=== PATIENT | female | born 1985 | race Caucasian/White ===

== ENCOUNTER 2018-11-30 15:48 | Outpatient (CLI) | payer BC ==
[~2018-11-30 15:48] MED LIST: DCS100C PO; HYDR-3720 PO; Ibuprofen PO; PREN-93 PO
--- NOTE | 2018-11-30 15:57 | NUR ---
JYOTI BARRETT presented to unit via ambulation from ED with c/o FELL AT WORK. Pt weighed, gowned, voided, and to bed. EFHM and TOCO applied, VS taken. Pt. oriented to bed controls, call light, TV, heat, and A/C controls.
[2018-11-30 16:00] VITALS: BP 110/65
--- NOTE | 2018-11-30 16:02 | NUR ---
pt reports falling @ work today, around 1050 this a.m. walking out of bathroom, slipped on water, feel and hit Rt. hip. denies hitting abd. reports +FM. denies leaking fluid or vaginal bleeding. called 's office. requesting pt to be seen. had pre-op appointment this afternoon prior to arrival on unit.
--- NOTE | 2018-11-30 16:40 | NUR ---
ultrasound here for BPP.
--- NOTE | 2018-11-30 17:08 | Diagnostic Imaging Report ---
INDICATION: Fall, abdominal pain with contractions. History of polyhydramnios. TECHNIQUE: Multiple real-time grayscale images were obtained over the gravid uterus. COMPARISON: None. FINDINGS: Biophysical Profile Score: Movement: 2 Breathin Tone: 2 Fluid: 2 Total: /8 Heart Rate: 136 BPM. Presentation is cephalic. Placenta is anterior. BRIGITTE is 18.3 cm. The single largest vertical pocket is 6.5 cm. IMPRESSION: 1. Normal Biophysical Profile Score. 2. BRIGITTE is 18.3, which is within normal limits. Dictated by: Dictated on workstation # [id number]
--- NOTE | 2018-11-30 17:10 | NUR ---
here to see pt.
--- NOTE | 2018-11-30 17:32 | NUR ---
dismissal instructions given, states understanding. reviewed sx's and sx's to RTC. signature page singed, placed on chart.
--- NOTE | 2018-11-30 17:35 | NUR ---
pt ambulated to private vehicle with no sx's of distress noted.
--- NOTE | 2018-12-01 08:51 | Physician Query-Final Dx ---
Clinic Account Progress/Dx Physician Query: Please give diagnosis Please remember to include weeks gestation Date of Service Nov 30, 2018 at 15:48 GABE HERNANDEZ Dec 01, 2018 08:51
[2018-12-01] MEDS ORDERED: PREN1TAB79 PO (12:00)
[2018-12-06] MEDS ORDERED: DOCU100C37 PO (11:51)
[2018-12-06] MEDS ORDERED: OXYC1TAB12 PO (11:51)
[2018-12-06] MEDS ORDERED: IBUP-1780 PO (11:51)
== END 2018-11-30 17:35 | disposition home or self-care (01) ==
LOC: LDRP 15:48 → WSo 15:48
PROVIDERS: ATTEND Obstetrics & Gynecology
DX: O33.2 Maternal care for disproportion due to inlet contraction of pelvis (principal); O99.89 Other specified diseases and conditions complicating pregnancy, childbirth and the puerperium; R10.9 Unspecified abdominal pain; Z87.59 Personal history of other complications of pregnancy, childbirth and the puerperium; W19.XXXA Unspecified fall, initial encounter
CPT/HCPCS: 59025; 76805; 76819

== ENCOUNTER 2018-12-01 09:00 | Outpatient (CLI) | payer BC ==
[~2018-12-01] VITALS: Ht 160 cm; Wt 71.2 kg
[2018-12-01] MEDS ORDERED: PREN1TAB79 PO (12:00)
== END 2018-12-01 12:20 | disposition home or self-care (01) ==
LOC: PREOP 09:00
PROVIDERS: ATTEND Obstetrics & Gynecology
DX: Z01.818 Encounter for other preprocedural examination (principal)

== ENCOUNTER 2018-12-06 09:40 | Inpatient (IN) | payer BC ==
[~2018-12-06] VITALS: Ht 161.3 cm; Wt 70.9 kg
[2018-12-06] VITALS (8 sets, daily range): BP systolic 100–118; BP diastolic 57–67
[~2018-12-06 09:40] MED LIST changes: +PREN1TAB79 PO
--- NOTE | 2018-12-06 09:43 | NUR ---
JYOTI BARRETT presented to unit via AMBULATORY from HOME, accompanied by S/O FOR SCHEDULED REPEAT . JYOTI BARRETT weighed, gowned, voided, and to bed. EFHM and TOCO applied, VS taken. JYOTI BARRETT oriented to bed controls, call light, TV, heat, and A/C controls.
[2018-12-06] MEDS ORDERED: LACTATED RINGERS 1,000 ML IV PRN (10:36)
[2018-12-06 10:43] LABS: BASOPHILS % (AUTO) 0 % (0-10); EOSINOPHILS # (AUTO) 0.3 10^3/uL (0.0-0.3); EOSINOPHILS % (AUTO) 3 % (0-10); HEMATOCRIT 35 % (35-52); HEMOGLOBIN 11.8 G/DL (11.5-16.0); LYMPHOCYTES # (AUTO) 1.4 X 10^3 (1.0-4.0); LYMPHOCYTES % (AUTO) 13 % (12-44); MEAN CORPUSCULAR HEMOGLOBIN 29 PG (25-34); MEAN CORPUSCULAR HGB CONC 34 G/DL (32-36); MEAN CORPUSCULAR VOLUME 86 FL (80-99); MEAN PLATELET VOLUME 10.4 FL (7.4-10.4); MONOCYTES # (AUTO) 0.8 X 10^3 (0.0-1.0); MONOCYTES % (AUTO) 8 % (0-12); NEUTROPHILS # (AUTO) 7.9 X 10^3 (1.8-7.8); NEUTROPHILS % (AUTO) 76 % (42-75); PLATELET COUNT 198 10^3/uL (130-400); RED CELL DISTRIBUTION WIDTH 13.2 % (10.0-14.5); WHITE BLOOD COUNT 10.4 10^3/uL (4.3-11.0)
[2018-12-06] MEDS ORDERED: CATHETER FLUSH 10 ML SYR IV PRN (10:45)
[2018-12-06] MEDS ORDERED: FAMOTIDINE 20MG/2ML IV (PEPCID) IV ONE (10:45)
[2018-12-06] MEDS ORDERED: ceFAZolin 2 GM/50 ML NS 50 ML IV ONE (10:45)
[2018-12-06] MEDS ORDERED: CITRIC ACID/SOB CIT (BICITRA) 30 ML UDC PO ONE (10:45)
[2018-12-06] MEDS ORDERED: METOCLOPRAMIDE INJ 10 MG/2 ML (REGLAN) IV ONE (10:45)
[2018-12-06] MEDS ORDERED: LACTATED RINGERS 1,000 ML IV ONE (10:45)
[2018-12-06] MEDS ORDERED: metroNIDAZOLE 500MG/100ML IVPB 100 ML IV ONE (10:45)
[2018-12-06] MEDS ORDERED: fentaNYL INJECTION 100 MCG/2 ML AMP ONE (11:10)
[2018-12-06] MEDS ORDERED: D5 LR IV SOLUTION 1,000 ML IV SCH (11:44)
[2018-12-06] MEDS ORDERED: OXYTOCIN/NORMAL SALINE 500 ML IV SCH (11:44)
[2018-12-06] MEDS ORDERED: ONDANSETRON 4 MG/2 ML (SDV) Z0FRAN IVP PRN (11:45)
[2018-12-06] MEDS ORDERED: MEASLES,MUMPS,RUBELLA 1 EA INJ SC ONE (11:45)
[2018-12-06] MEDS ORDERED: oxyCODONE/APAP 10/325MG (PERCOCET 10) TABLET PO PRN (11:45)
[2018-12-06] MEDS ORDERED: TETANUS,DIPTH,PERTUSS P/F (BOOSTRIX) 0.5 ML VIAL IM ONE (11:45)
[2018-12-06] MEDS ORDERED: OXYTOCIN/NORMAL SALINE 1,000 ML IV ONE (11:48)
--- NOTE | 2018-12-06 11:49 | History & Physical ---
History and Physical Date Seen by Provider: Dec 06, 2018 Time Seen by Provider: 11:47 This patient is a 33-year-old white female with an EDC of [phone] putting her now at 38 weeks gestation. She presents now for repeat delivery. She has had 3 previous cesareans. She had her is complicated by polyhydramnios as well as her 3 previous pregnancies. She's had no other issues today. She did have a GBS culture done at 35 weeks gestation that was positive. She denies rupture membranes or bleeding. She denies pain or contractions. She does feel baby moving. Allergies are none Medications are vitamins and Prilosec Medical social and surgical histories are per the antepartum record HEENT exam is normal Neck is supple no lymphadenopathy no thyromegaly Abdomen is gravid soft nontender nondistended Extremities show no clubbing or cyanosis. There is no Homans sign. Pelvic exam is deferred Laboratory Tests 12/06/18 10:12 Assessment and plan term at 38 weeks gestation with polyhydramnios in a patient with 3 previous C-sections. She presents now for repeat delivery. Surgical risk complication recovering follow-up have all been fully discussed. Patient accepts those risks and is ready to proceed with delivery. Allergies and Home Medications Allergies Coded Allergies: No Known Drug Allergies (Verified Allergy, Unknown, 04/23/08) Home Medications Vit W-Ca,Fe,FA(<1 mg) 1 Each Tablet, 1 EACH PO DAILY, (Reported) Patient Home Medication List Home Medication List Reviewed: Yes Clinical Quality Measures DVT/VTE Risk/Contraindication: Risk Factor Score Per Nursin RFS Level Per Nursing on Admit: 2=Moderate AYANNA GOOD MD Dec 06, 2018 11:49
[2018-12-06] MEDS ORDERED: OXYC1TAB12 PO (11:51)
[2018-12-06] MEDS ORDERED: DOCU100C37 PO (11:51)
[2018-12-06] MEDS ORDERED: IBUP-1780 PO (11:51)
--- NOTE | 2018-12-06 11:52 | Discharge Instructions ---
Discharge Instructions Reconcile Patient Problems Problems Reviewed?: Yes Discharge Medications New, Converted or Re-Newed RX: RX on Chart Patient Instructions Patient Instructions: As directed Return to The Hospital For: As directed Activity & Diet Discharge Diet: No Restrictions Activity as Tolerated: No Orders-Post D/C & Referrals Follow Up Appt: RTC 1 week for incision check. Call to make follow up appt. for patient in 4 weeks. Wound Care: Remove mary, apply benzoin and steri strips. Activity Per routine post instructions. Please call in RX to patient pharmacy. Diet as tolerated Patient may shower or tub bathe as desired. Continue home meds AYANNA GOOD MD Dec 06, 2018 11:52
[2018-12-06] MEDS ORDERED: KETOROLAC 30 MG/ML VIAL ONE (12:09)
[2018-12-06] MEDS ORDERED: PHENYLEPHRINE 100 MCG/ML 10 ML (ANESTHESIA) SYR ONE (12:20)
[2018-12-06] MEDS ORDERED: ONDANSETRON 4 MG/2 ML (SDV) Z0FRAN ONE (12:31)
[2018-12-06] MEDS: KETOROLAC 30 MG/ML VIAL IVP PRN ×2 (13:07→20:05)
[2018-12-06] MEDS ORDERED: ONDANSETRON 4 MG/2 ML (SDV) Z0FRAN IVP ONE (13:15)
--- NOTE | 2018-12-06 13:40 | NUR ---
TRANSFERRED TO PP ROOM 307 VIA PT BED FROM OB PAR AFTER A REPEAT SECTION BY DR. GOOD ACC BY DREW GARCIA RN. SPOUSE PUSHING IN OPEN CRIB. ORIENTED TO SURROUNDINGS, CALL LIGHT OPERATION, ROOM SERVICE PROCEDURE, AND INFORMATION PAPERS. DENIES ANY PAIN. SIDE RAILS UP X2 @HOB. CALL LIGHT PLACED WITHIN REACH. ABDOMEN SOFT, FF U/1. VAG FLOW LT/MOD RUBRA. ABD DRSG D/I. IV PATENT. SITE CLEAR.
--- NOTE | 2018-12-06 14:15 | NUR ---
FF U/1. VAG FLOW LT/MOD RUBRA. FAMILY AT BEDSIDE.
--- NOTE | 2018-12-06 15:00 | NUR ---
FUNDUS MASSAGED TO FIRM @U/1. VAG FLOW MOD RUBRA. PT STATES SHE FEELS THE URGE TO VOID. UP TO THE BATHROOM WITH ASSISTANCE. UNABLE TO VOID. ABLE TO BEAR WEIGHT WITHOUT PROBLEMS. PERICARE WITH PAD/UNDERWEAR CHANGE. BACK TO BED WITHOUT PROBLEMS.
--- NOTE | 2018-12-06 15:30 | NUR ---
EATING LUNCH AT THIS TIME. DOING WELL.
--- NOTE | 2018-12-06 16:02 | OPERATIVE REPORT ---
DATE OF SERVICE: 12/06/2018 PREOPERATIVE DIAGNOSIS: Term at 38 weeks' gestation with polyhydramnios and 3 previous C-sections. POSTOPERATIVE DIAGNOSIS: Term at 38 weeks' gestation with polyhydramnios and 3 previous C-sections. OPERATIVE PROCEDURE: Repeat low transverse delivery of a viable female infant with Apgars of 8 and 8 at 1 and 5 minutes respectively, weight of 8 pounds 2 ounces and cord blood gas pH of 7.32. OPERATIVE DESCRIPTION: With the patient in the supine position under satisfactory spinal analgesia, she was prepped and draped in the usual fashion for abdominal surgery. Callejas catheter was placed in the urinary bladder. Repeat Pfannenstiel incision made through skin with a scalpel by removing the patient's previous Pfannenstiel incisional scar. The abdomen was entered in the usual manner. Bladder retractor placed in position, clean scalpel used to make a 4 cm hysterotomy incision transversely across the lower uterine segment that was extended by blunt dissection as well. Copious clear fluid was released on hysterotomy. A vigorous viable female infant was delivered via the uterine incision. had Apgars and stats as noted above. The was bulb suctioned on delivery of the head and again on completion of delivery, the umbilical cord was doubly clamped and cut and the passed to the pediatric nurse in attendance for delivery. Cord bloods were obtained. The placenta delivered spontaneously Mead. It was normal with 3-vessel cord. The uterus was exteriorized, the interior wiped clean with a wet laparotomy sponge. Uterine incision then closed with a running locked suture of 2-0 Vicryl. Hemostasis was complete. The uterus was returned to the abdominal cavity. All blood clot and debris removed from the abdominal cavity. With sponge, needle counts correct, hemostasis assured. The anterior parietal peritoneum was closed with running suture of 2-0 Vicryl. Rectus muscles were closed with that suture as well. The rectus fascia was closed with 2-0 Vicryl, subcutaneous tissue was closed with 2-0 Vicryl and the skin was stapled. Sponge and needle counts were correct on completion of the procedure. Estimated blood loss was around 500 mL. The patient tolerated the procedure well and remained in the OR transferred to the recovery room. The infant remained with the mom. Job ID: [id number] DocumentID: [id number] Dictated Date: 12/06/2018 12:36:24 Parliamentary Archivist Date: 12/06/2018 16:00:39 Dictated By: AYANNA GOOD MD
--- NOTE | 2018-12-06 16:45 | NUR ---
VSS. CONTINUES TO DO WELL. CARING FOR IN ROOM. WITHOUT PROBLEMS.
--- NOTE | 2018-12-06 17:00 | NUR ---
UP TO THE BATHROOM WITH STANDBY ASSISTANCE. VOIDED 300 CC URINE. PERICARE WITH PAD CHANGE. BACK TO BED WITHOUT PROBLEMS. FF U/1. VAG FLOW LT RUBRA.
[2018-12-06] MEDS: IBUPROFEN 800 MG (MOTRIN) TAB PO SCH (18:00)
--- NOTE | 2018-12-06 18:15 | NUR ---
CONTINUES TO DENY NEED FOR PAIN MEDICATION.
--- NOTE | 2018-12-06 18:35 | NUR ---
PT GOT HERSELF UP TO THE BATHROOM. MOVING WELL. OFFERS NO COMPLAINTS. NURSERY RN IN TO TRY TO AWAKEN TO FEED.
[2018-12-06] MEDS: DOCUSATE SODIUM 100 MG (COLACE) CAP PO SCH (20:05)
[2018-12-07] VITALS: BP 107/58
[2018-12-07] MEDS: IBUPROFEN 800 MG (MOTRIN) TAB PO SCH ×4 (02:04→20:12)
[2018-12-07 04:00] VITALS: BP 119/74
--- NOTE | 2018-12-07 06:39 | NUR ---
pt up to shower at this time.
[2018-12-07] MEDS: DOCUSATE SODIUM 100 MG (COLACE) CAP PO SCH ×2 (08:05→20:11)
--- NOTE | 2018-12-07 08:05 | NUR ---
Initial shift assessment completed, see interventions for further. abd incision LESLEE with clips D/I. incision edges well approximated, no sx's of infection noted. c/o cramping and Rt.shoulder pain. Scheduled Motrin given, see eMar for further.
[2018-12-07 08:09] VITALS: BP 2/69
--- NOTE | 2018-12-07 08:11 | Progress Note ---
Standard Progress Note Progress Notes/Assess & Plan Date Seen by a Provider: Dec 07, 2018 Time Seen by a Provider: 08:10 Progress/Assessment & Plan This patient is without complaint. She is ablating, voiding, tolerating oral intake well has good pain denies headache, denies shortness breath, denies nausea vomiting or chest pain. Vital Signs 12/07/18 08:09 Temp 98.1 Pulse 75 Resp 16 B/P (MAP) 2/69 (47) Pulse Ox 98 O2 Delivery Room Air Vital signs are stable. Patient is afebrile. The abdomen is benign fundus is firm below the umbilicus and nontender. The surgical incision is clean dry and intact. Extremities show no clubbing cyanosis there is no Homans sign. There is minimal pretibial pitting edema. Assessment and plan postoperative day number 1 status post repeat delivery doing well. Plan is for routine convalescence care today and consider discharge home tomorrow AYANNA GOOD MD Dec 07, 2018 08:11
--- NOTE | 2018-12-07 10:50 | Anesthesia-Regional Post-Op ---
Regional Patient Condition Mental Status: Alert, Oriented x3 Circulation: Same as Pre-Op Headache: Absent Sensation: Full Recovery Motor Block: Absent Post Op Complications Complications None Follow Up Care/Instructions Patient Instructions None needed. Anesthesia/Patient Condition Patient is doing well, no complaints, stable vital signs, no apparent adverse anesthesia problems. No complications reported per nursing. D/C home per [facility] Criteria: Yes GUILHERME BALL CRNA Dec 07, 2018 10:50
[2018-12-07 12:26] VITALS: BP 121/68
[2018-12-07 17:48] VITALS: BP 110/63
[2018-12-07] MEDS: SIMETHICONE 80 MG (MYLICON) CHEW PO SCH (18:08)
[2018-12-07] MEDS: HYDROCORTISONE 2.5% CREAM (ANUSOL-HC) 30 GM TOP SCH ×2 (18:09→21:00)
--- NOTE | 2018-12-07 19:18 | NUR ---
report given to IWONA Wiseman.
[2018-12-07 20:00] VITALS: BP 105/59
[2018-12-08] VITALS: BP 108/64
[2018-12-08] MEDS: SIMETHICONE 80 MG (MYLICON) CHEW PO SCH (00:35)
[2018-12-08] MEDS: IBUPROFEN 800 MG (MOTRIN) TAB PO SCH ×2 (02:03→08:41)
[2018-12-08 04:00] VITALS: BP 110/55
--- NOTE | 2018-12-08 07:15 | NUR ---
Dr Palencia in to see pt.
--- NOTE | 2018-12-08 07:51 | Progress Note ---
Standard Progress Note Progress Notes/Assess & Plan Date Seen by a Provider: Dec 08, 2018 Time Seen by a Provider: 07:50 Progress/Assessment & Plan This patient is without complaint. She is ablating, voiding, tolerating oral intake well has good pain denies headache, denies shortness breath, denies nausea vomiting or chest pain. Vital Signs 12/07/18 08:09 Temp 98.1 Pulse 75 Resp 16 B/P (MAP) 2/69 (47) Pulse Ox 98 O2 Delivery Room Air Vital signs are stable. Patient is afebrile. The abdomen is benign fundus is firm below the umbilicus and nontender. The surgical incision is clean dry and intact. Extremities show no clubbing cyanosis there is no Homans sign. There is minimal pretibial pitting edema. Assessment and plan postoperative day number 1 status post repeat delivery doing well. Plan is for routine convalescence care today and consider discharge home tomorrow December 08, 2018 Patient without complaint. She is ablating, voiding, tolerating oral intake well has good pain control. She is requesting discharge home. Vital Signs Date Time Temp Pulse Resp B/P (MAP) Pulse Ox O2 Delivery O2 Flow Rate FiO2 12/08/18 04:00 98.3 55 18 110/55 (73) 96 Room Air 12/08/18 00:00 97.5 60 16 108/64 (79) 96 Room Air 12/07/18 21:00 97 Room Air 12/07/18 20:00 98.4 62 18 105/59 (74) 98 Room Air 12/07/18 17:48 99.8 63 16 110/63 (79) 96 Room Air 12/07/18 12:26 98.5 73 16 121/68 (85) 100 Room Air 12/07/18 08:09 98.1 75 16 2/69 (47) 98 Room Air I & O 12/08/18 07:00 Intake Total 600 ml Balance 600 ml Vital signs are stable. Patient is afebrile. The abdomen is benign. The surgical incision is clean dry and intact. Parker show no clubbing cyanosis. There is no Homans sign. There is minimal pretibial pitting edema. Assessment and plan postoperative day number 2 status post repeat delivery at 38 weeks gestation. Patient is doing well baby is doing well plan is for discharge home Final Diagnosis 38 week repeat delivery FLORENTINO,AYANNA G MD Dec 08, 2018 07:51
[2018-12-08] MEDS: DOCUSATE SODIUM 100 MG (COLACE) CAP PO SCH (08:40)
[2018-12-08] MEDS ORDERED: TETANUS,DIPTH,PERTUSS P/F (BOOSTRIX) 0.5 ML VIAL IM ONE (10:15)
--- NOTE | 2018-12-08 10:26 | NUR ---
Gave Tdap lt deltoid. Lot #[id number]. Exp date 01/13/19. VIS given today. VIS date 05/29/14
--- NOTE | 2018-12-08 10:30 | NUR ---
Removed 27 mary without difficulty. Tincture of Benzoin applied then steri strips. No drainage noted. Incision pink, dry and intact. Sides approximate. No s/s of infection. No concerns voiced via pt. Incision care explained to pt. Pt verbalizes understanding.
--- NOTE | 2018-12-08 11:30 | NUR ---
JYOTI BARRETT demonstrates understanding of discharge instructions and accurately returns instructions upon questioning. Copy of Post-Discharge Instructions and Medication Discharge Instructions given to pt. JYOTI BARRETT is able to manage continuing needs after discharge. Patients belongings returned to pt . Skin dry and intact; no breakdown noted steri strips intact. Patient discharged from [facility] on 12/08/18 at 1130 . JYOTI BARRETT left floor ambulatory, accompanied by and women's services staff.
== END 2018-12-08 11:30 | disposition home or self-care (01) | DRG 788 ==
LOC: LDRP 09:40 → WS 13:24 → LDRP 13:54
PROVIDERS: ADMIT Obstetrics & Gynecology; ATTEND Obstetrics & Gynecology
PROC: 10D00Z1 Extraction of Products of Conception, Low, Open Approach (ICD-10-PCS; principal; 2018-12-06 11:55)
DX: O34.211 Maternal care for low transverse scar from previous cesarean delivery (principal); O40.3XX0 Polyhydramnios, third trimester, not applicable or unspecified; O99.824 Streptococcus B carrier state complicating childbirth; O99.62 Diseases of the digestive system complicating childbirth; K21.9 Gastro-esophageal reflux disease without esophagitis; Z3A.38 38 weeks gestation of pregnancy; Z37.0 Single live birth; Z23 Encounter for immunization
CPT/HCPCS: 36415; 85025; 86850; 86900; 86901; 87081; 88307; 90715

== ENCOUNTER → 2020-05-23 | Outpatient (CLI) | payer BC ==
[~2020-05-23] MED LIST changes: +DOCU100C37 PO; +IBUP-1780 PO; +OXYC1TAB12 PO
--- NOTE | 2020-05-23 13:32 | Diagnostic Imaging Report ---
INDICATION: Dimpling in the lateral right breast. No prior mammograms are available for comparison. 2-D and 3-D bilateral diagnostic mammography was performed with CAD. Both breasts are heterogeneously dense, limiting the sensitivity of mammography. There is an area density in the upper and outer aspect of the right breast at mid to posterior depth. Further evaluation of this area with ultrasound is recommended. No other suspicious density is seen. There are no malignant appearing microcalcifications. Axillae are unremarkable. IMPRESSION: BI-RADS 0 Area of increased density in the upper outer right breast 5 to 7 cm from the nipple. Further evaluation with ultrasound is recommended. In addition, evaluation of the area of dimpling in the lateral right breast is recommended with ultrasound. ACR BI-RADS Category 0: Incomplete. (Needs additional imaging evaluation). Result letter will be mailed to the patient. Note: At least 10% of breast cancer is not imaged by mammography. Dictated by: Dictated on workstation # [id number]
--- NOTE | 2020-05-23 13:53 | Diagnostic Imaging Report ---
INDICATION: Dimpling in the right breast as well as right breast density. Correlation is made with diagnostic mammogram earlier same day. Sonographic interrogation of the outer right breast as well as upper outer right breast was performed. No sonographic abnormalities detected. No solid or cystic masses detected. IMPRESSION: BI-RADS Category 1 No sonographic abnormality is identified. Continued clinical and self breast exams recommended. ACR BI-RADS Category 1: Negative. Result letter will be mailed to the patient. Note: At least 10% of breast cancer is not imaged by mammography. Dictated by: Dictated on workstation # [id number]
== END ==
LOC: RAD 12:33
PROVIDERS: ATTEND Obstetrics & Gynecology
DX: N64.89 Other specified disorders of breast (principal); R92.2 Inconclusive mammogram
CPT/HCPCS: 76642; 77066; G0279; 77062